=== PATIENT | female | born 2005 | race Caucasian/White ===

== ENCOUNTER → 2025-03-22 | Outpatient (CLI) | payer BC | LOC: NEUROMAIN 08:00 | PROVIDERS: ATTEND Psychiatry & Neurology Neurology | DX: R55 Syncope and collapse (principal) | CPT/HCPCS: 95816 ==

== ENCOUNTER → 2025-03-22 | Outpatient (CLI) | payer BC ==
[2025-03-22 15:35] LABS: Basophils # (A) 0.06 X 10*3/uL (0.00-0.10); Basophils % (A) 1.0 %; Eosinophils # (A) 0.37 X 10*3/uL (0.04-0.35); Eosinophils % (A) 6.2 %; HCT 36.5 % (37.2-46.3); HGB 11.5 g/dL (12.0-15.0); Immature Grans, Automated 0.20 %; Lymphocytes # (A) 1.11 X 10*3/uL (0.90-5.00); Lymphocytes % (A) 18.7 %; MCH 27.6 pg (27.0-32.0); MCHC 31.5 g/dL (32.0-37.0); MCV 87.7 FL (80.0-97.0); Monocytes # (A) 0.39 X 10*3/uL (0.20-1.00); Monocytes % (A) 6.6 %; NRBC Per 100 WBC 0 X 10*3/uL (0.00-0.01); Neutrophils # (A) 3.99 X 10*3/uL (1.80-7.70); Neutrophils % (A) 67.3 %; Platelet Count 297 X 10*3/uL (140-440); RBC 4.16 X 10*6/uL (4.10-5.20); RDW 13.0 % (11.5-14.5); WBC 5.93 X 10*3/uL (4.50-10.00)
[2025-03-22 16:08] LABS: Vitamin B12 <150.0 pg/mL (200.0-944.0)
== END | disposition home or self-care (01) ==
LOC: LABWHC1 09:24
PROVIDERS: ATTEND Psychiatry & Neurology Neurology
DX: R55 Syncope and collapse (principal)
CPT/HCPCS: 36415; 82306; 82607; 84443; 85025

== ENCOUNTER → 2025-04-04 | Outpatient (CLI) | payer BC ==
--- NOTE | 2025-04-19 09:52 | P.CEMON ---
14 Day Event monitor note: Patient wore an event monitor for 14 days from 04/04/2025 through 04/17/2025. Findings: Patient's baseline heart rate was normal sinus rhythm. There were no signficant atrial fibrillation, atrial flutter, or ventricular tachycardia episodes. There were no significant pauses greater than 2 seconds. There were 6 patient activated events including lightheaded episodes as well as reported fainting x 3. Fainting episodes corresponded with sinus rhythm with heart rates 58-111. Conclusions: 14-day event monitor showing normal sinus rhythm with 6 patient activated events including 3 fainting spells which corresponded with sinus rhythm and occasionally mild sinus tachycardia.
== END | disposition home or self-care (01) ==
LOC: RADECHMAIN 07:22
PROVIDERS: ATTEND Psychiatry & Neurology Neurology
DX: R00.0 Tachycardia, unspecified (principal)
CPT/HCPCS: 93270

== ENCOUNTER → 2025-04-05 | Outpatient (CLI) | payer BC | END | disposition home or self-care (01) | LOC: RADMRIMAIN 17:07 | PROVIDERS: ATTEND Psychiatry & Neurology Neurology | DX: Z53.9 Procedure and treatment not carried out, unspecified reason (principal) ==